=== PATIENT | male | born 1960 | race African-American/Black ===

== ENCOUNTER 2016-10-18 19:16 | Inpatient (IN) | payer OTHER ==
[~2016-10-18] VITALS: Ht 182.9 cm; Wt 91.6 kg
[~2016-10-18 19:16] MED LIST: ACTOS; AMLODIPINE; ASPI81CH43 PO; HYDR25TA4 OR; LANTUS; LISIPOW; PLAVIX; WARF5TAB PO
[2016-10-18] MEDS ORDERED: IPRATROPIUM BROM 0.5 MG/2.5ML INH SOL NEB ONE (19:45)
[2016-10-18] MEDS ORDERED: ALBUTEROL SULF 2.5 MG/0.5ML(0.5%) NEB SOLN NEB ONE (19:45)
[2016-10-18 20:08] LABS: Basophils # (auto) 0 uL; Basophils % (auto) 0.3 % (0.0-2.0); Eosinophils # (auto) 0 uL; Eosinophils % (auto) 0.1 % (0.0-7.0); Hematocrit 32.8 % (41.0-53.0); Hemoglobin 10.4 g/dL (13.5-17.5); Lymphocytes # (auto) 0.8 uL; Lymphocytes % (auto) 6.9 % (10.0-50.0); Mean Corpuscular Hemoglobin 29.1 pg (28.0-32.0); Mean Corpuscular Hgb Conc. 31.7 g/dL (32.0-36.0); Mean Corpuscular Volume 91.7 fL (80.0-100.0); Mean Platelet Volume 9.9 fL (7.4-10.4); Monocytes # (auto) 0.3 uL; Monocytes % (auto) 2.7 % (0.0-12.0); Neutrophils # (auto) 10.2 uL; Platelet Count (auto) 201 10^3/uL (140-450); Red Cell Distribution Width 15.2 % (11.6-16.0); White Blood Cell 11.3 10^3/uL (4.4-10.8)
[2016-10-18 21:14] LABS: Albumin 2.5 g/dL (3.4-5.0); Calcium 7.9 mg/dL (8.5-10.1); Magnesium 1.8 mg/dL (1.6-2.6)
[2016-10-18 21:16] LABS: BUN/Creatinine Ratio 15.9
[2016-10-18 21:19] LABS: Bilirubin, Total 1.1 mg/dL (0.2-1.0); Total Protein 6.5 g/dL (6.4-8.2)
[2016-10-18] MEDS ORDERED: methylPREDNISolone SOD SUCC 125 MG/2 ML VL IV ONE (21:30)
[2016-10-18 21:34] LABS: Potassium 6.5 mmol/L (3.5-5.1)
[2016-10-18 22:04] LABS: B-Type Natriuretic Peptide 367.2 pg/mL (0-100); Temperature: 22.7 C (20.0-25.0)
[2016-10-18] MEDS ORDERED: InsuLIN REG 1unit/0.01ml Soln (100units/ml) IV ONE (23:15)
[2016-10-18] MEDS ORDERED: DEXTROSE (25%) 10 ML SYRG IV ONE (23:15)
[2016-10-18] MEDS ORDERED: LEVOFLOXACIN 500MG 100 ML IV ONE (23:15)
[2016-10-18] MEDS ORDERED: SODIUM BICARBONATE 8.4 % INJ 50ML VIAL IV ONE (23:15)
[2016-10-18] MEDS ORDERED: CALCIUM GLUC 4.65 MEQ/10ML 4.65 MEQ in SODIUM CHL 0.9% 50 ML IV ONE (23:15)
[2016-10-18 23:36] LABS: Partial Thromboplastin Time 41.3 sec (22.64-33.71); Prothrombin Time 12.1 sec (9.37-12.3)
[2016-10-18 23:38] LABS: INR 1.17 (0.9-1.15)
[2016-10-18] MEDS ORDERED: CALCIUM GLUC 4.65 MEQ/10ML IV ONE (23:59)
[2016-10-19 02:58] LABS: Urine Bilirubin Negative (Negative); Urine Blood TRACE /uL (Negative); Urine Color Yellow (Yellow); Urine Glucose Normal (Normal); Urine Ketone Negative (Negative); Urine Nitrite Negative (Negative); Urine RBC <1 /hpf (0 - 3); Urine Sperm PRESENT /hpf (None Seen); Urine Urobilinogen Normal (Negative)
[2016-10-19] MEDS ORDERED: NITROGLYCERIN 0.4 MG SL TAB SL PRN (05:30)
[2016-10-19] MEDS ORDERED: LACTULOSE 20Gm/30ML SOLN PO PRN (05:30)
[2016-10-19] MEDS ORDERED: DEXTROSE (50%) 50ML SYRG IV PRN (05:30)
[2016-10-19] MEDS ORDERED: MORPHINE SULF INJ 2 MG/ML SYRINGE 1ML IV PRN (05:30)
[2016-10-19] MEDS ORDERED: ENOXAPARIN SOD 100 MG/1 ML SYRINGE SC SCH (06:00)
[2016-10-19] MEDS ORDERED: ALBUTEROL SULF 2.5 MG/0.5ML(0.5%) NEB SOLN NEB ONE ×2 (06:00→06:15)
[2016-10-19] MEDS ORDERED: IPRATROPIUM BROM 0.5 MG/2.5ML INH SOL NEB ONE ×2 (06:00→06:15)
[2016-10-19] MEDS: cefTRIAXone 1GM/50ML D5W 50 ML IV SCH (06:00)
[2016-10-19] MEDS: ALBUTEROL SULF 2.5 MG/0.5ML(0.5%) NEB SOLN NEB SCH ×4 (06:01→23:15)
[2016-10-19] MEDS: IPRATROPIUM BROM 0.5 MG/2.5ML INH SOL NEB SCH ×4 (06:01→23:15)
[2016-10-19] MEDS: FUROSEMIDE 40 MG/4 ML VIAL IV SCH ×3 (06:10→18:13)
[2016-10-19] MEDS: ACCU-CHEK COMFORT CURVE STRIP VI SCH ×3 (06:30→18:07)
[2016-10-19] MEDS: InsuLIN REG 1unit/0.01ml Soln (100units/ml) SC SCH ×3 (06:30→18:08)
[2016-10-19] MEDS: ENOXAPARIN SOD 100 MG/1 ML SYRINGE SC SCH (07:17)
[2016-10-19 07:42] LABS: Albumin 2.6 g/dL (3.4-5.0); Calcium 8.3 mg/dL (8.5-10.1)
[2016-10-19 07:44] LABS: Bilirubin, Total 0.9 mg/dL (0.2-1.0); Total Protein 6.7 g/dL (6.4-8.2)
[2016-10-19 07:48] LABS: Basophils # (auto) 0 uL; Eosinophils # (auto) 0 uL; Hematocrit 34.3 % (41.0-53.0); Hemoglobin 10.8 g/dL (13.5-17.5); Lymphocytes # (auto) 0.5 uL; Lymphocytes % (auto) 5.7 % (10.0-50.0); Mean Corpuscular Hemoglobin 28.7 pg (28.0-32.0); Mean Corpuscular Hgb Conc. 31.4 g/dL (32.0-36.0); Mean Corpuscular Volume 91.2 fL (80.0-100.0); Mean Platelet Volume 10.7 fL (7.4-10.4); Monocytes # (auto) 0.1 uL; Monocytes % (auto) 0.7 % (0.0-12.0); Neutrophils # (auto) 8.6 uL; Neutrophils % (auto) 93.6 % (37.0-80.0); Platelet Count (auto) 227 10^3/uL (140-450); Red Cell Distribution Width 14.8 % (11.6-16.0); SUSPECT VIEW TRANSMISSION; White Blood Cell 9.2 10^3/uL (4.4-10.8)
[2016-10-19 07:51] LABS: Potassium 5.9 mmol/L (3.5-5.1)
[2016-10-19] MEDS ORDERED: SODIUM BICARBONATE 8.4 % INJ 50ML VIAL IV ONE (08:15)
[2016-10-19] MEDS ORDERED: InsuLIN REG 1unit/0.01ml Soln (100units/ml) IV ONE (08:15)
[2016-10-19] MEDS ORDERED: DEXTROSE (50%) 50ML SYRG IV ONE (08:15)
[2016-10-19 08:25] LABS: Large Platelets FEW; Platelet Estimate Adequa; RBC Morphology Normal
[2016-10-19] MEDS ORDERED: ENOXAPARIN SOD 30 MG/0.3 ML SYRINGE SC SCH (10:00)
[2016-10-19] MEDS ORDERED: HYDROXYCHLOROQUINE SULFATE 200 MG TAB PO SCH (10:00)
[2016-10-19] MEDS: HCTZ 25 MG TAB PO SCH (11:00)
[2016-10-19] MEDS: amLODIPine BESYLATE 5 MG TAB PO SCH (11:00)
[2016-10-19] MEDS: METOPROLOL SUCCINATE XL 50 MG TAB PO SCH (11:00)
[2016-10-19] MEDS: FOLIC ACID 1 MG TAB PO SCH (11:00)
[2016-10-19] MEDS: HYDROXYCHLOROQUINE SULFATE 200 MG TAB PO SCH (11:00)
[2016-10-19] MEDS: PANTOPRAZOLE SODIUM 40 MG/10 ML VIAL IV SCH (11:00)
[2016-10-19] MEDS: methylPREDNISolone SOD SUCC 125 MG/2 ML VL IV SCH (11:00)
[2016-10-19] MEDS: ALLOPURINOL 100 MG TAB PO SCH (11:00)
[2016-10-19] MEDS: CLOPIDOGREL BISULFATE 75 MG TAB PO SCH (11:00)
[2016-10-19] MEDS: ASPirin 81 mg TAB PO SCH (11:00)
[2016-10-19] MEDS: CALCIUM GLUC 4.65 MEQ/10ML 4.65 MEQ in SODIUM CHL 0.9% 50 ML IV ONE ×2 (13:30→16:30)
[2016-10-19] MEDS ORDERED: AZITHROMYCIN 500MG/D5W 250ML 250 ML IV ONE (13:30)
[2016-10-19] MEDS: SODIUM BICARBONATE 8.4 % INJ 50ML VIAL IV ONE ×2 (13:30→16:30)
[2016-10-19] MEDS ORDERED: SODIUM POLYSTYRENE SULF 15GM/60ML SUSP PO ONE (15:00)
[2016-10-19 19:05] VITALS: BP 162/70
[2016-10-19 20:00] VITALS: BP 137/82
[2016-10-19] MEDS: ATORVASTATIN 20 MG TAB PO SCH (21:52)
[2016-10-19] MEDS ORDERED: POTASSIUM CHL 10 Meq TABLET PO SCH (22:00)
[2016-10-20] VITALS (8 sets, daily range): BP systolic 130–152; BP diastolic 71–84
[2016-10-20] MEDS ORDERED: LEVOFLOXACIN 250MG 50 ML IV SCH
[2016-10-20] MEDS: IPRATROPIUM BROM 0.5 MG/2.5ML INH SOL NEB SCH ×5 (02:40→22:00)
[2016-10-20] MEDS: ALBUTEROL SULF 2.5 MG/0.5ML(0.5%) NEB SOLN NEB SCH ×5 (02:40→22:00)
[2016-10-20] MEDS ORDERED: ATO40T PO (05:35)
[2016-10-20] MEDS ORDERED: FOLI1TAB6 PO (05:35)
[2016-10-20] MEDS ORDERED: METO-158 PO (05:35)
[2016-10-20] MEDS ORDERED: HYDR200T PO (05:35)
[2016-10-20] MEDS ORDERED: CLOP75TA28 PO (05:40)
[2016-10-20] MEDS ORDERED: INSLANTI SC (05:40)
[2016-10-20] MEDS: InsuLIN REG 1unit/0.01ml Soln (100units/ml) SC SCH ×4 (06:00→17:54)
[2016-10-20] MEDS: FUROSEMIDE 40 MG/4 ML VIAL IV SCH ×2 (06:17→18:00)
[2016-10-20] MEDS: cefTRIAXone 1GM/50ML D5W 50 ML IV SCH (06:17)
[2016-10-20] MEDS: ENOXAPARIN SOD 100 MG/1 ML SYRINGE SC SCH (06:17)
[2016-10-20] MEDS: ACCU-CHEK COMFORT CURVE STRIP VI SCH ×4 (06:17→18:06)
[2016-10-20 06:29] LABS: Basophils # (auto) 0 uL; Eosinophils # (auto) 0 uL; Hematocrit 29.3 % (41.0-53.0); Hemoglobin 9.4 g/dL (13.5-17.5); Lymphocytes # (auto) 0.4 uL; Lymphocytes % (auto) 3.1 % (10.0-50.0); Mean Corpuscular Hemoglobin 29.1 pg (28.0-32.0); Mean Corpuscular Hgb Conc. 32.2 g/dL (32.0-36.0); Mean Corpuscular Volume 90.2 fL (80.0-100.0); Monocytes # (auto) 0.5 uL; Neutrophils # (auto) 10.9 uL; Neutrophils % (auto) 92.9 % (37.0-80.0); Platelet Count (auto) 216 10^3/uL (140-450); Red Cell Distribution Width 15.3 % (11.6-16.0); SUSPECT VIEW TRANSMISSION; White Blood Cell 11.7 10^3/uL (4.4-10.8)
[2016-10-20 06:43] LABS: Potassium 4.8 mmol/L (3.5-5.1)
[2016-10-20 06:49] LABS: Albumin 2.3 g/dL (3.4-5.0); BUN/Creatinine Ratio 20.6; Calcium 7.8 mg/dL (8.5-10.1)
[2016-10-20 06:51] LABS: Bilirubin, Total 0.8 mg/dL (0.2-1.0); Total Protein 5.9 g/dL (6.4-8.2)
[2016-10-20] MEDS: METOPROLOL SUCCINATE XL 50 MG TAB PO SCH (10:56)
[2016-10-20] MEDS: HYDROXYCHLOROQUINE SULFATE 200 MG TAB PO SCH (10:57)
[2016-10-20] MEDS: ALLOPURINOL 100 MG TAB PO SCH (10:57)
[2016-10-20] MEDS: amLODIPine BESYLATE 5 MG TAB PO SCH (10:58)
[2016-10-20] MEDS: PANTOPRAZOLE SODIUM 40 MG/10 ML VIAL IV SCH (10:59)
[2016-10-20] MEDS: methylPREDNISolone SOD SUCC 125 MG/2 ML VL IV SCH (10:59)
[2016-10-20] MEDS: ASPirin 81 mg TAB PO SCH (10:59)
[2016-10-20] MEDS: FOLIC ACID 1 MG TAB PO SCH (10:59)
[2016-10-20] MEDS: CLOPIDOGREL BISULFATE 75 MG TAB PO SCH (10:59)
[2016-10-20] MEDS: HCTZ 25 MG TAB PO SCH (10:59)
[2016-10-20] MEDS: AZITHROMYCIN 500MG/D5W 250ML 250 ML IV SCH (11:07)
[2016-10-20] MEDS ORDERED: guaiFENesin 200 MG/10 ML UD PO PRN (14:00)
[2016-10-20] MEDS: Boost Glucose Control 8 Ounces PO SCH (18:06)
[2016-10-20] MEDS: ATORVASTATIN 20 MG TAB PO SCH (21:39)
[2016-10-20] MEDS: INSULIN DETEMIR(LEVEMIR) 1unit/0.01ml Soln (100units/ml) SC SCH (21:43)
[2016-10-21] MEDS: ACCU-CHEK COMFORT CURVE STRIP VI SCH ×5 (00:25→22:59)
[2016-10-21] MEDS: InsuLIN REG 1unit/0.01ml Soln (100units/ml) SC SCH ×5 (00:29→23:01)
[2016-10-21] MEDS: ALBUTEROL SULF 2.5 MG/0.5ML(0.5%) NEB SOLN NEB SCH ×6 (02:00→22:01)
[2016-10-21] MEDS: IPRATROPIUM BROM 0.5 MG/2.5ML INH SOL NEB SCH ×5 (02:00→22:01)
[2016-10-21 04:42] VITALS: BP 147/89
[2016-10-21] MEDS: FUROSEMIDE 40 MG/4 ML VIAL IV SCH (06:08)
[2016-10-21] MEDS: ENOXAPARIN SOD 100 MG/1 ML SYRINGE SC SCH (06:09)
[2016-10-21] MEDS: cefTRIAXone 1GM/50ML D5W 50 ML IV SCH (06:09)
[2016-10-21] MEDS: INSULIN DETEMIR(LEVEMIR) 1unit/0.01ml Soln (100units/ml) SC SCH ×2 (06:26→23:01)
[2016-10-21 06:38] LABS: Basophils # (auto) 0 uL; Basophils % (auto) 0.1 % (0.0-2.0); Eosinophils # (auto) 0 uL; Hematocrit 31.4 % (41.0-53.0); Hemoglobin 9.8 g/dL (13.5-17.5); Lymphocytes # (auto) 0.5 uL; Lymphocytes % (auto) 3.1 % (10.0-50.0); Mean Corpuscular Hemoglobin 28.5 pg (28.0-32.0); Mean Corpuscular Hgb Conc. 31.3 g/dL (32.0-36.0); Mean Corpuscular Volume 91.3 fL (80.0-100.0); Mean Platelet Volume 10.9 fL (7.4-10.4); Monocytes # (auto) 0.6 uL; Neutrophils # (auto) 13.8 uL; Neutrophils % (auto) 92.8 % (37.0-80.0); Platelet Count (auto) 207 10^3/uL (140-450); Red Cell Distribution Width 14.7 % (11.6-16.0); White Blood Cell 14.8 10^3/uL (4.4-10.8)
[2016-10-21 06:51] LABS: Albumin 2.3 g/dL (3.4-5.0); Calcium 7.4 mg/dL (8.5-10.1); Potassium 4.8 mmol/L (3.5-5.1)
[2016-10-21 06:56] LABS: BUN/Creatinine Ratio 22.7; Bilirubin, Total 0.7 mg/dL (0.2-1.0); Total Protein 5.7 g/dL (6.4-8.2)
[2016-10-21] MEDS: Boost Glucose Control 8 Ounces PO SCH ×3 (08:00→18:10)
[2016-10-21 08:30] VITALS: BP 137/84
[2016-10-21] MEDS: PANTOPRAZOLE SODIUM 40 MG/10 ML VIAL IV SCH (09:14)
[2016-10-21] MEDS: methylPREDNISolone SOD SUCC 125 MG/2 ML VL IV SCH (09:14)
[2016-10-21] MEDS: AZITHROMYCIN 500MG/D5W 250ML 250 ML IV SCH (09:15)
[2016-10-21] MEDS: CLOPIDOGREL BISULFATE 75 MG TAB PO SCH (09:15)
[2016-10-21] MEDS: HYDROXYCHLOROQUINE SULFATE 200 MG TAB PO SCH (09:15)
[2016-10-21] MEDS: ASPirin 81 mg TAB PO SCH (09:16)
[2016-10-21] MEDS: FOLIC ACID 1 MG TAB PO SCH (09:16)
[2016-10-21] MEDS: ALLOPURINOL 100 MG TAB PO SCH (09:16)
[2016-10-21] MEDS: amLODIPine BESYLATE 5 MG TAB PO SCH (09:17)
[2016-10-21] MEDS: HCTZ 25 MG TAB PO SCH (09:18)
[2016-10-21] MEDS: METOPROLOL SUCCINATE XL 50 MG TAB PO SCH (09:18)
[2016-10-21 12:44] VITALS: BP 144/87
[2016-10-21 17:22] VITALS: BP 121/73
[2016-10-21 22:09] VITALS: BP 135/83
[2016-10-21] MEDS: ATORVASTATIN 20 MG TAB PO SCH (22:35)
[2016-10-22] MEDS: IPRATROPIUM BROM 0.5 MG/2.5ML INH SOL NEB SCH ×6 (01:56→22:43)
[2016-10-22] MEDS: ALBUTEROL SULF 2.5 MG/0.5ML(0.5%) NEB SOLN NEB SCH ×6 (01:56→22:43)
[2016-10-22 04:55] VITALS: BP 133/85
[2016-10-22] MEDS: cefTRIAXone 1GM/50ML D5W 50 ML IV SCH (05:35)
[2016-10-22 05:45] LABS: Potassium 4.8 mmol/L (3.5-5.1)
[2016-10-22 05:47] LABS: Basophils # (auto) 0 uL; Basophils % (auto) 0.1 % (0.0-2.0); Eosinophils # (auto) 0 uL; Hematocrit 30.1 % (41.0-53.0); Hemoglobin 9.9 g/dL (13.5-17.5); Lymphocytes # (auto) 0.5 uL; Mean Corpuscular Hemoglobin 29.9 pg (28.0-32.0); Mean Corpuscular Hgb Conc. 32.8 g/dL (32.0-36.0); Mean Corpuscular Volume 91.2 fL (80.0-100.0); Mean Platelet Volume 10.4 fL (7.4-10.4); Monocytes # (auto) 0.5 uL; Neutrophils # (auto) 10.9 uL; Neutrophils % (auto) 91.9 % (37.0-80.0); Platelet Count (auto) 175 10^3/uL (140-450); Red Cell Distribution Width 13.7 % (11.6-16.0); SUSPECT VIEW TRANSMISSION; White Blood Cell 11.9 10^3/uL (4.4-10.8)
[2016-10-22] MEDS: ACCU-CHEK COMFORT CURVE STRIP VI SCH ×4 (06:21→23:46)
[2016-10-22] MEDS: InsuLIN REG 1unit/0.01ml Soln (100units/ml) SC SCH ×4 (06:42→23:49)
[2016-10-22] MEDS: INSULIN DETEMIR(LEVEMIR) 1unit/0.01ml Soln (100units/ml) SC SCH (06:42)
[2016-10-22] MEDS: Boost Glucose Control 8 Ounces PO SCH ×3 (08:00→18:28)
[2016-10-22 08:30] VITALS: BP 135/84
[2016-10-22] MEDS ORDERED: FUROSEMIDE 40 MG/4 ML VIAL IV SCH (10:00)
[2016-10-22] MEDS: CLOPIDOGREL BISULFATE 75 MG TAB PO SCH (10:02)
[2016-10-22] MEDS: METOPROLOL SUCCINATE XL 50 MG TAB PO SCH (10:02)
[2016-10-22] MEDS: HYDROXYCHLOROQUINE SULFATE 200 MG TAB PO SCH (10:03)
[2016-10-22] MEDS: FOLIC ACID 1 MG TAB PO SCH (10:03)
[2016-10-22] MEDS: ASPirin 81 mg TAB PO SCH (10:03)
[2016-10-22] MEDS: amLODIPine BESYLATE 5 MG TAB PO SCH (10:04)
[2016-10-22] MEDS: AZITHROMYCIN 250 MG TAB PO SCH (10:04)
[2016-10-22] MEDS: PANTOPRAZOLE 40 MG TAB PO SCH (10:05)
[2016-10-22] MEDS: ALLOPURINOL 100 MG TAB PO SCH (10:05)
[2016-10-22 13:00] VITALS: BP 140/81
[2016-10-22] MEDS ORDERED: SOD CHL 0.45% 1,000 ML IV ONE (16:00)
[2016-10-22 16:56] VITALS: BP 129/79
[2016-10-22 21:47] VITALS: BP 136/86
[2016-10-22] MEDS ORDERED: INSULIN DETEMIR(LEVEMIR) 1unit/0.01ml Soln (100units/ml) SC SCH (22:00)
[2016-10-22] MEDS: ATORVASTATIN 20 MG TAB PO SCH (22:25)
[2016-10-23] MEDS: IPRATROPIUM BROM 0.5 MG/2.5ML INH SOL NEB SCH ×3 (02:30→09:54)
[2016-10-23] MEDS: ALBUTEROL SULF 2.5 MG/0.5ML(0.5%) NEB SOLN NEB SCH ×3 (02:30→09:54)
[2016-10-23 05:17] VITALS: BP 136/88
[2016-10-23] MEDS: cefTRIAXone 1GM/50ML D5W 50 ML IV SCH (05:43)
[2016-10-23] MEDS: ACCU-CHEK COMFORT CURVE STRIP VI SCH (05:43)
[2016-10-23] MEDS: InsuLIN REG 1unit/0.01ml Soln (100units/ml) SC SCH (05:45)
[2016-10-23 07:02] LABS: Basophils # (auto) 0 uL; Basophils % (auto) 0.2 % (0.0-2.0); Eosinophils # (auto) 0.2 uL; Eosinophils % (auto) 1.5 % (0.0-7.0); Hematocrit 32.5 % (41.0-53.0); Hemoglobin 10.3 g/dL (13.5-17.5); Lymphocytes # (auto) 1.4 uL; Lymphocytes % (auto) 12.2 % (10.0-50.0); Mean Corpuscular Hemoglobin 28.6 pg (28.0-32.0); Mean Corpuscular Hgb Conc. 31.7 g/dL (32.0-36.0); Mean Corpuscular Volume 90.3 fL (80.0-100.0); Mean Platelet Volume 10.4 fL (7.4-10.4); Monocytes # (auto) 0.4 uL; Monocytes % (auto) 3.1 % (0.0-12.0); Neutrophils # (auto) 9.8 uL; Platelet Count (auto) 210 10^3/uL (140-450); Red Cell Distribution Width 14.7 % (11.6-16.0); White Blood Cell 11.8 10^3/uL (4.4-10.8)
[2016-10-23 07:23] LABS: BUN/Creatinine Ratio 30.9; Calcium 7.1 mg/dL (8.5-10.1); Potassium 4.2 mmol/L (3.5-5.1)
[2016-10-23] MEDS: Boost Glucose Control 8 Ounces PO SCH (08:00)
[2016-10-23 09:00] VITALS: BP 143/86
[2016-10-23] MEDS: CLOPIDOGREL BISULFATE 75 MG TAB PO SCH (09:39)
[2016-10-23] MEDS: PANTOPRAZOLE 40 MG TAB PO SCH (09:39)
[2016-10-23] MEDS: HYDROXYCHLOROQUINE SULFATE 200 MG TAB PO SCH (09:39)
[2016-10-23] MEDS: FOLIC ACID 1 MG TAB PO SCH (09:39)
[2016-10-23] MEDS: METOPROLOL SUCCINATE XL 50 MG TAB PO SCH (09:40)
[2016-10-23] MEDS: AZITHROMYCIN 250 MG TAB PO SCH (09:40)
[2016-10-23] MEDS: amLODIPine BESYLATE 5 MG TAB PO SCH (09:41)
[2016-10-23] MEDS: ASPirin 81 mg TAB PO SCH (09:41)
[2016-10-23] MEDS ORDERED: PANT40T PO (09:50)
[2016-10-23] MEDS ORDERED: METO50TA7 PO (09:50)
[2016-10-23] MEDS ORDERED: FUROSEMIDE 40 MG TAB PO SCH (10:00)
[2016-10-23] MEDS ORDERED: FURO40TA PO (10:42)
[2016-10-23] MEDS ORDERED: AZIT500T PO (10:42)
[2016-10-23 10:55] VITALS: BP 136/88
== END 2016-10-23 12:55 | disposition home or self-care (01) | DRG 291 ==
LOC: ER 19:20 → TELE 19:21 → DOU IN ICU 10-19 17:00 → TELE-CENTR 10-20 16:53 → CENTRAL 10-21 19:02
PROVIDERS: ADMIT Family Medicine; ATTEND Internal Medicine
DX: I13.2 Hypertensive heart and chronic kidney disease with heart failure and with stage 5 chronic kidney disease, or end stage renal disease (principal); I50.43 Acute on chronic combined systolic (congestive) and diastolic (congestive) heart failure; J18.9 Pneumonia, unspecified organism; E43 Unspecified severe protein-calorie malnutrition; N18.6 End stage renal disease; N17.9 Acute kidney failure, unspecified; D63.8 Anemia in other chronic diseases classified elsewhere; D72.823 Leukemoid reaction; E11.21 Type 2 diabetes mellitus with diabetic nephropathy; E11.40 Type 2 diabetes mellitus with diabetic neuropathy, unspecified; E11.22 Type 2 diabetes mellitus with diabetic chronic kidney disease; E78.5 Hyperlipidemia, unspecified; Z96.641 Presence of right artificial hip joint; E87.5 Hyperkalemia; I25.10 Atherosclerotic heart disease of native coronary artery without angina pectoris; Z79.4 Long term (current) use of insulin; Z82.49 Family history of ischemic heart disease and other diseases of the circulatory system; Z83.3 Family history of diabetes mellitus; Z85.830 Personal history of malignant neoplasm of bone; Z86.73 Personal history of transient ischemic attack (TIA), and cerebral infarction without residual deficits; Z89.612 Acquired absence of left leg above knee; Z95.5 Presence of coronary angioplasty implant and graft; Z99.2 Dependence on renal dialysis; Z68.27 Body mass index [BMI] 27.0-27.9, adult
CPT/HCPCS: 36415; 36600; 71010; 78582; 80048; 80053; 81001; 82805; 82962; 83036; 83735; 83880; 84100; 84132; 84484; 85025; 85379; 85610; 85730; 86803; 87040; 87081; 87340; 93005; 93306; 93971; 94640; 94761; 96365; 96367; 96375; C9113; J0696; J1815; J1956

== ENCOUNTER 2018-07-12 10:12 | Emergency (ER) | payer OTHER ==
[~2018-07-12] VITALS: Ht 182.9 cm; Wt 74.4 kg
[~2018-07-12 10:12] MED LIST changes: -ACTOS; +ATO40T PO; +AZIT500T PO; +CLOP75TA28 PO; +FOLI1TAB6 PO; +FURO40TA PO; +HYDR-4441 PO; -HYDR25TA4 OR; +INSLANTI SC; +MET5XLT PO; +PANT40T PO
[2018-07-12 10:25] VITALS: BP 144/92
[2018-07-12] MEDS ORDERED: KETOROLAC TROMETH 60MG/2ML VIAL IM ONE (11:30)
== END 2018-07-12 11:47 | disposition home or self-care (01) ==
LOC: ER 10:12
DX: M25.532 Pain in left wrist (principal); I25.10 Atherosclerotic heart disease of native coronary artery without angina pectoris; E11.22 Type 2 diabetes mellitus with diabetic chronic kidney disease; I13.0 Hypertensive heart and chronic kidney disease with heart failure and stage 1 through stage 4 chronic kidney disease, or unspecified chronic kidney disease; N18.9 Chronic kidney disease, unspecified; I50.9 Heart failure, unspecified; Z88.1 Allergy status to other antibiotic agents; Z79.4 Long term (current) use of insulin; Z79.899 Other long term (current) drug therapy; Z79.82 Long term (current) use of aspirin; Z86.73 Personal history of transient ischemic attack (TIA), and cerebral infarction without residual deficits; Z99.2 Dependence on renal dialysis; Z98.61 Coronary angioplasty status
CPT/HCPCS: 73110; 82962; 96372; 99284; J1885